=== PATIENT | female | born 1950 | race Caucasian/White ===

== ENCOUNTER 2018-11-11 06:35 | Day surgery (SDC) | payer OTHER ==
--- NOTE | 2018-11-03 09:54 | HP ---
Admitting History and Physical - Primary Care Physician PCP: Artur Jimenez - Admission Chief Complaint: right breast DCIS History of Present Illness: 68 year old postmenapausal female who underwent a right breast wide excision for ADH in 2007.She was noted to have some increasing calcifications right breast 12:00 to 1:00 on mammogram 06/2018 which persisted on compression views .The calcifications extended over 3.7 cm. She underwent a stereotactic core biopsy 10/2018 showing DCIS ER/AZ+ She had a breast MRI 10/2018 which showed localized right breast cancer left breast Birad 1. History Source: Patient Limitations to Obtaining History: No Limitations - Past Medical History Cardiovascular: Yes: HTN, Hyperlipdemia Endocrine: Yes: Diabetes Mellitus (NIDDM) Additional Past Medical History: glaucoma - Past Surgical History Past Surgical History: Yes: Additional Past Surgical History: right breast wide excision 2007 ADH - Smoking History Smoking history: Former smoker Have you smoked in the past 12 months: No - Alcohol/Substance Use Hx Alcohol Use: Yes (once a month) Home Medications - Allergies Allergies/Adverse Reactions: Allergies Allergy/AdvReac Type Severity Reaction Status Date / Time No Known Allergies Allergy Verified 11/03/18 09:59 - Home Medications Home Medications (free text): arorvastatin,amlodipine,glimepiride,metoprolol, enalapril,dorzolamide,latanoprost drops Family Disease History - Family Disease History Family History: Denies Physical Examination Vital Signs: ptotic B sized breasts well healed incision and scar 12:00 region right breast. some post BX changes from prior excison and stereotactic core bx right breast , no palpable densities or adenopathy bilaterally Problem List - Problems (1) Ductal carcinoma in situ (DCIS) of right breast Code(s): D05.11 - INTRADUCTAL CARCINOMA IN SITU OF RIGHT BREAST Assessment/Plan Right partial mastectomy with bracketed needle localization and mastopexy reduction
[2018-11-09 15:53] VITALS: BMI 31.1
[2018-11-11] MEDS ORDERED: ceFAZolin SODIUM 1 GM VIAL ONE (08:52)
[2018-11-11] MEDS ORDERED: DEXAMETHASONE SOD PHOSPHATE 4 MG/1 ML VIAL ONE (08:52)
[2018-11-11] MEDS ORDERED: KETOROLAC TROMETHAMINE 30 MG/1 ML VIAL ONE (08:52)
[2018-11-11] MEDS ORDERED: ONDANSETRON 4 MG/2 ML VIAL ONE (08:52)
[2018-11-11] MEDS ORDERED: SODIUM CHLORIDE 0.9% P/F 10 ML VIAL IJ ONE (08:52)
[2018-11-11] MEDS ORDERED: LIDOCAINE HCL/PF 2% SDV 5ML VIAL ONE (08:52)
[2018-11-11] MEDS ORDERED: BUPIVACAINE HCL/PF 2.5 MG/ML - 30 ML VIAL IJ ONE (11:36)
[2018-11-11] MEDS ORDERED: LIDOCAINE HCL 1% PRESERVATIVE FREE - 30ML VIAL ONE (11:36)
[2018-11-11] MEDS ORDERED: MIDAZOLAM HCL 2 MG/2 ML SINGLE DOSE VIAL ONE ×2 (11:43→11:44)
[2018-11-11] MEDS ORDERED: PHENYLEPHRINE HCL 10 MG/1 ML SINGLE DOSE VIAL ONE (12:04)
[2018-11-11] MEDS ORDERED: ePHEDrine SULFATE 50 MG/1 ML AMPULE ONE (12:18)
[2018-11-11] MEDS ORDERED: KETOROLAC TROMETHAMINE 30 MG/1 ML VIAL IVPUSH PRN (12:39)
[2018-11-11] MEDS ORDERED: ONDANSETRON 4 MG/2 ML VIAL IVPUSH PRN (12:39)
[2018-11-11] MEDS ORDERED: DEXTROSE 5%-0.45% SALINE 1,000 ML IV SCH (12:45)
--- NOTE | 2018-11-11 14:12 | OP ---
DATE OF OPERATION: 11/11/2018 PREOPERATIVE DIAGNOSIS: Right breast ductal carcinoma in situ. POSTOPERATIVE DIAGNOSIS: Right breast ductal carcinoma in situ. PROCEDURE: Right breast partial mastectomy with mammographic bracketing needle localizations x2 and partial tissue transfer closure by Plastic Surgery. PRIMARY SURGEON: Artur Jimenez MD INSPECTOR FLOOR SUB ASSEMBLY: EMERY Cosme ANESTHESIA: General and laryngeal mask airway anesthesia. COMPLICATIONS: There are no complications. PLASTIC SURGEON: Artur Montana MD DESCRIPTION OF PROCEDURE: Briefly, the patient is a 68-year-old G2, P1, postmenopausal female of [place] descent with no family history of breast or ovarian cancer. The patient has a history of undergoing a right breast partial mastectomy in 2007 for atypia which was done in the [facility]. She was found to have some increasing calcifications in the right breast, upper and outer quadrant, and stereotactic biopsy showed intermediate grade DCIS which was ER/RI-positive. MRI showed a hematoma around the previous biopsy site, and the calcifications did extend over an area of about 4 cm. She was advised in undergoing a right breast partial mastectomy with bracketing needle localizations and was seen by Plastic Surgery for possible reduction mastopexy versus tissue transfer closure. She was brought in for the procedure on November 11, 2018. She underwent bracketing needle localizations in radiology and was brought to the holding area. In the holding area, site verification was made, and informed consent was obtained. She was marked preoperatively by the plastic surgeon. She was brought into the operating room and laid on the OR table in a supine position. Venodynes were placed on the lower extremities prior to induction. She received a g of Ancef prior to incision. She underwent general and laryngeal mask airway anesthesia. The right breast was then sterilely prepped and draped in the usual fashion with the wire prepped in the field. Timeout was performed. Incision was made just towards the upper outer quadrant of the right breast and dissection was undertaken around the bracketing needle localization site. We did use a previous wide excision incision. The breast tissue was completely removed from around the wires all the way down to the pectoralis major muscle. The specimen was oriented with a long lateral-short superior suture, and specimen radiographs showed removal of the clip in question. The specimen was sent to Pathology in formalin. Separate margins were then taken on the superior, inferior, medial, lateral, deep, and anterior aspects with sutures marking the biopsy cavity side and each margin was sent separately to Pathology as wide excision margins. Hemostasis was achieved. At this point, Dr. Montana became the primary surgeon and performed a tissue transfer closure by undermining the breast tissue and reapproximated using 2-0 plain suture. The skin was closed using interrupted 3-0 deep dermal Vicryl suture and a running 4-0 subcuticular Biosyn suture. Mastisol and Steri-Strips were applied over the wound. A compressive dressing placed over this. She was placed in a surgical bra postoperatively. The patient had the laryngeal mask airway tube removed at the end of the case, and was awake and alert and brought to the postanesthesia care unit in stable condition. She will be recovered and then discharged home the same day once discharge criteria are met. She is to follow up in the office in 1 week for formal wound pathology check. Estimated blood loss was minimal, and all sponge and needle counts were correct at the end of the case. Dhruv [id number]
[2018-11-11 14:36] VITALS: TEMP 98.2
[2018-11-11 16:08] VITALS: BP 115/75; PULSE 72
--- NOTE | 2018-11-14 11:06 | OP ---
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 POSTOPERATIVE DIAGNOSIS: Acquired right chest wall deformity status post wide excision of breast cancer. OPERATIVE PROCEDURE: Right breast tissue rearrangement and reconstruction with other technique. OPERATIVE INDICATION: The is a patient who is brought to the operating room by Dr. Lola Jimenez for large extirpation of a mass in the upper/outer quadrant of the right breast, which was recurrent cancer. This is a combined dictation with Dr. Lola Jimenez, who performed the extirpation, and reconstruction with other technique was carried out. OPERATIVE PROCEDURE IN DETAIL: The patient was taken to the operating room by Dr. Lola Jimenez. She was marked in the holding area for outline of the procedure and the markings for the reconstruction in the holding area. All questions were asked and answered. After confirming the procedure, Dr. Jimenez performed the operation by making an incision in the upper/outer quadrant of the right breast, which will be dictated under a separate cover. Upon completion of the extirpation with margins of the large mass, a tissue rearrangement of the right upper quadrant and breast were carried out in the usual fashion for reconstruction with other technique. The tissue was then advanced and closed upon itself in multiple layers with 2-0 Caprosyn suture in the deep layers, 3-0 Biosyn in a deep dermal fashion, and a subcuticular suture with 3-0 Biosyn suture. Good shape and contour were seen. Good reconstruction was carried out. The patient tolerated the procedure well. She was dressed with Dermabond, Steri-Strips, and a compressive dressing and a Surgi-Bra. She was awakened and transferred to the recovery room in satisfactory condition. LOLA MONTANA M.D. [id number]
--- NOTE | 2018-11-16 13:05 | PATH ---
Surgical Pathology Report Patient Name: DIANE KEVIN [facility]. Rec. #: [id number] /Age/Gender: 1950 (Age: 68) / F Account: [id number] Location: [facility] AM[facility]ORY Taken: 11/11/2018 Received: 11/11/2018 Reported: 11/12/2018 Physicians: Artur Jimenez M.D. Specimen(s) Received A: RIGHT BREAST WIDE EXCISION LONG LATERAL SHORT SUPERIOR B: RIGHT BREAST SUPERIOR MARGIN C: RIGHT BREAST MEDIAL MARGIN D: RIGHT BREAST INFERIOR MARGIN E: RIGHT BREAST LATERAL MARGIN F: RIGHT BREAST ANTERIOR MARGIN G: RIGHT BREAST DEEP MARGIN Clinical History DCIS Final Diagnosis A. RIGHT BREAST, WIDE EXCISION: DUCTAL CARCINOMA IN SITU (DCIS), MICROPAPILLARY, CRIBRIFORM, AND PAPILLARY TYPE, INTERMEDIATE NUCLEAR GRADE, WITH ASSOCIATED NECROSIS AND CALCIFICATIONS, PRESENT IN 7 OF 11 SLIDES. DCIS MEASURES 2.8 CM IN GREATEST DIMENSION. MARGINS ARE UNINVOLVED BY DCIS. THE DCIS IS AT 1 MM FROM THE CLOSEST MARGIN (DEEP MARGIN). SEE SPECIMEN B TO G FOR FINAL MARGINS. REMAINDER OF THE BREAST TISSUE SHOW FIBROCYSTIC CHANGES WITH ASSOCIATED MICROCALCIFICATIONS. PRIOR BIOPSY SITE CHANGES ARE PRESENT. PATHOLOGIC STAGE (pTNM): pTis pNx. ALSO SEE DCIS CASE SUMMARY BELOW. B. RIGHT BREAST, SUPERIOR MARGIN, EXCISION: BENIGN BREAST TISSUE. C. RIGHT BREAST, MEDIAL MARGIN, EXCISION: DUCTAL CARCINOMA IN SITU (DCIS) PRESENT, FOCAL. THE FINAL MARGIN IS NEGATIVE FOR DCIS. THE DCIS IS AT1.1 CM FROM THE FINAL MARGIN. D. RIGHT BREAST, INFERIOR MARGIN, EXCISION: BENIGN BREAST TISSUE. E. RIGHT BREAST, LATERAL MARGIN, EXCISION : DUCTAL CARCINOMA IN SITU (DCIS) PRESENT, FOCAL. THE FINAL MARGIN IS NEGATIVE FOR DCIS. THE DCIS IS AT 0.9CM FROM THE FINAL MARGIN. F. RIGHT BREAST, ANTERIOR MARGIN, EXCISION: BENIGN BREAST TISSUE. G. RIGHT BREAST, DEEP MARGIN, EXCISION: BENIGN FIBROADIPOSE TISSUE. Comments DCIS of the Breast: Surgical Pathology Cancer Case Summary (Based on AJCC TNM 8 th edition) Procedure _x_ Excision (less than total mastectomy) Specimen Laterality _x_ Right Size (Extent) of DCIS Estimated size (extent) of DCIS (greatest dimension using gross and microscopic evaluation): at least (millimeters): 36 mm (the number of blocks containing DCIS multiplying by 0.4 cm (thickness of the tissue). Number of blocks with DCIS: 9 (including the wide excision and margins) Number of blocks examined: 34 Note: The size (extent) of DCIS is an estimation of the volume of breast tissue occupied by DCIS. Histologic Type _x_ Ductal carcinoma in situ Architectural Patterns _x_ Cribriform _x_ Micropapillary _x_ Papillary Nuclear Grade _x_ Grade II (intermediate) Necrosis _x_ Present, focal (small foci or single cell necrosis) Margins _x_ Uninvolved by DCIS Distance from closest margin (millimeters): 9 mm Specify closest margin: Lateral margin Regional Lymph Nodes _x_ No lymph nodes submitted or found Pathologic Stage Classification (pTNM, AJCC 8th Edition) Primary Tumor (pT) _x_ pTis (DCIS): Ductal carcinoma in situ Microcalcifications _x_ Present in DCIS _x_ Present in nonneoplastic tissue Biomarker Studies Results of ER and AK studies performed on this specimen (block# A1) at [facility] are as follows: ER (clone [id number] mouse monoclonal antibody by [employer]): >95% nuclear staining with strong intensity (positive). AK (clone16 mouse monoclonal antibody by [employer]): >95% nuclear staining with moderate to strong intensity (positive). Positive and negative controls (internal if applicable) show appropriate results. Formalin fixation and cold ischemic times are within current ASCO/CAP recommendations for ER, AK and Her2 testing. Electronically Signed Adi Pierre M.D. Gross Description A. Received in formalin, labeled "right breast, wide excision" is a 5.2 x 4.5 x 2.5 cm portion of fibrofatty tissue with two localizing needles in place. A long suture gooden the lateral margin and a short suture indicates the superior margin, per the surgeon. The specimen is inked as follows: superior blue, inferior green, anterior red, deep black, lateral orange, medial yellow. Sectioning reveals a central, hemorrhagic biopsy cavity measuring 1.2 x 0.5 x 0.5 cm at 0.3 cm from the anterior margin and 1 cm from the deep margin. An additional hemorrhagic focus with associated yellow-shrestha fat necrosis and fibrosis is present at 0.1 cm from the lateral margin. The remaining tissue is comprised of fibroadipose tissue with few fibrous to firm foci, predominantly close to the deep margin. Batch Freezer sections are submitted in eleven cassettes as follows: 1-3- central biopsy cavity with anterior margin; 6-5-mobiikrmpp fibrotic hemorrhagic focus with lateral margin; 7, 8-fibrous to firm foci with deep margin; 9-superior margin; 10-inferior margin; 11-medial margin. Time to formalin fixation: 22 minutes Total formalin fixation: Approximately 7 hours. B. Received in formalin, labeled "right breast, superior margin" is a 4 x 3.5 x 0.8 cm portion of fibrofatty tissue with a suture marking the biopsy cavity, side, per the surgeon. The margin opposite the suture is inked black. The specimen is serially sectioned and entirely submitted in six cassettes. C. Received in formalin, labeled "right breast, medial margin" is a 3.5 x 2 x 0.8 cm portion of fibrofatty tissue with a suture marking the biopsy cavity, side, per the surgeon. The margin opposite the suture is inked black. The specimen is serially sectioned and entirely submitted in three cassettes. D. Received in formalin, labeled "right breast, inferior margin" is a 1.4 x 1.2 x 0.8 cm portion of fibrofatty tissue with a suture marking the biopsy cavity, side, per the surgeon. The margin opposite the suture is inked black. The specimen is serially sectioned and entirely submitted in two cassettes. E. Received in formalin, labeled "right breast, lateral margin" is a 3.8 x 2.8 x 0.6 cm portion of fibrofatty tissue with a suture marking the biopsy cavity, side, per the surgeon. The margin opposite the suture is inked black. The specimen is serially sectioned and entirely submitted in five cassettes. F. Received in formalin, labeled "right breast, anterior margin" is a 3 x 2 x 0.4 cm portion of fibrofatty tissue with a suture marking the biopsy cavity, side, per the surgeon. The margin opposite the suture is inked black. The specimen is serially sectioned and entirely submitted in three cassettes. G. B. Received in formalin, labeled "right breast, deep margin" is a 3 x 2.3 x 0.9 cm portion of fibrofatty tissue with a suture marking the biopsy cavity, side, per the surgeon. The margin opposite the suture is inked black. The specimen is serially sectioned and entirely submitted in four cassettes. AE/11/11/2018 ebram/11/11/2018
== END 2018-11-11 15:30 | disposition home or self-care (01) ==
LOC: FASU 06:35
PROVIDERS: ATTEND Surgery Surgical Oncology
PROC: 0HBT0ZZ Excision of Right Breast, Open Approach (ICD-10-PCS; principal; 2018-11-11 12:09)
PROC: 0HRT07Z Replacement of Right Breast with Autologous Tissue Substitute, Open Approach (ICD-10-PCS; 2018-11-11 12:09)
DX: D05.11 Intraductal carcinoma in situ of right breast (principal); E11.9 Type 2 diabetes mellitus without complications; E78.5 Hyperlipidemia, unspecified; I10 Essential (primary) hypertension; H40.9 Unspecified glaucoma; M95.4 Acquired deformity of chest and rib
CPT/HCPCS: 19281; 19282; 82962; 88307-TC; 88342-TC; 94760